=== PATIENT | female | born 1980 | race African-American/Black ===

== ENCOUNTER 2017-01-13 00:51 | Emergency (ER) | payer OTHER ==
[~2017-01-13] VITALS: Ht 172.7 cm; Wt 125.0 kg
[~2017-01-13 00:51] MED LIST: LISI-363 PO
[2017-01-13 00:53] VITALS: BP 169/98; PULSE 106; RESP 18; TEMP 98.9; O2SAT 98
[2017-01-13] MEDS ORDERED: LISI-515 PO (01:39)
--- NOTE | 2017-01-13 01:47 | PD ---
HPI Chief Complaint: Oral / Dental Pain or Problem Time Seen by Provider: 01:44 Travel History International Travel<30 days: No Contact w/Intl Traveler<30days: No Traveled to known affect area: No History of Present Illness HPI Patient comes in complaining of left upper and lower dental pain that began yesterday. Patient states she's had problems with her teeth for approximately 4 years but has not been seen by a dentist secondary to cost. Patient is using [id number] medication with no relief symptoms. Patient reports pain is radiating into her ear is worse when anything touches it. Denies any fevers, nausea, vomiting, or difficulty swallowing. PFSH Past Medical History Blood Disorders: No Anxiety: Yes Depression: Yes Heart Rhythm Problems: No Cardiac Catheterization: No Cardiovascular Problems: Yes (HTN) Cerebrovascular Accident: No Diminished Hearing: No Endocrine: No Gastrointestinal Disorders: Yes GERD: No Genitourinary: No Headaches: No Hepatitis: No Hiatal Hernia: No Hypertension: Yes Immune Disorder: No Musculoskeletal: No Neurologic: No Psychiatric: Yes Reproductive: No Respiratory: No Immunizations Current: Yes Migraines: No Seizures: No PNEUMOCCOCAL Vaccine (Year): 2 ?: Not LMP: 01/02/17 Menopausal: No : 11 Para: 5 Miscarriage: 2 : 1 Dilation and Curettage (D&C): Yes Past Surgical History Abdominal Surgery: No Appendectomy: Yes Cardiac Surgery: No Section: Yes (X 4) Cholecystectomy: No Coronary Artery Bypass Graft: No Ear Surgery: No Endocrine Surgery: No Eye Surgery: No Genitourinary Surgery: No Gynecologic Surgery: Yes (, d&c) Oral Surgery: No Thoracic Surgery: No Social History Alcohol Use: Yes (occ) Tobacco Use: Yes Substance Use: No (quit marijuana) Allergies-Medications (Allergen,Severity, Reaction): Coded Allergies: Hydrocodone (Verified Allergy, Severe, Shortness of Breath, 01/13/17) Acyclovir (Verified Allergy, Unknown, Edema, 01/13/17) *MDRO Multi-Drug Resistant Organism (Verified Adverse Reaction, Unknown, ) 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 SKIN: Warm and dry. HEAD: Atraumatic. Normocephalic. EYES: Pupils equal and round. EOMI. No scleral icterus. No injection or drainage. ENT: No nasal bleeding or discharge. Mucous membranes pink and moist. Tympanic membranes pearly hassan bilaterally. Posterior pharynx erythematous with exudate. Uvula is midline. There is poor dentition with no visible or palpable abscess. Floor the mouth, submandibular, submental are all soft to palpation. NECK: Trachea midline. No cervical lymphadenopathy. Supple. No nuclear rigidity. RESPIRATORY: No accessory muscle use. No respiratory distress. MUSCULOSKELETAL: No obvious deformities. No clubbing. No cyanosis. No edema. Full range of motion. NEUROLOGICAL: Awake and alert. No obvious cranial nerve deficits. Motor grossly within normal limits. Normal speech. PSYCHIATRIC: Appropriate mood and affect; insight and judgment normal. Data Data Last Documented VS Vital Signs Date Time Temp Pulse Resp B/P Pulse Ox O2 Delivery O2 Flow Rate FiO2 01/13/17 01:58 92 16 166/88 99 01/13/17 00:53 98.9 Orders Clindamycin (Cleocin) (01/13/17 02:00) [facility] Medical Decision Making Medical Screen Exam Complete: Yes Emergency Medical Condition: Yes Differential Diagnosis Dental abscess, dental infection, dentalgia, other Narrative Course The patient presented with dental pain. There is no fever. There is no significant facial swelling or evidence of cellulitis. There is poor dentition but no evidence of drainable abscess at this time. There is no evidence of significant deep or invading abscess at this time. The patient will be placed on antibiotics and pain medication. The patient was instructed to follow up with a dentist. The patient was given the dental referral sheet. Warnings were discussed with the patient regarding worsening of infection. The patient is to return if pain worsens, develops progressive swelling or facial redness or fever. The patient agrees with plan. Patient in no obvious distress upon re-evaluation. Patient was asked if they wanted to speak to my attending, which the patient did not wish to do at this time. Any questions/concerns in reference to patient diagnosis/condition discussed and clarified prior to patient's discharge. Reinforced sheer importance of close follow up with patient's primary physician or primary care clinic. Instructed patient to return to ED immediately, if symptoms return/ worsen. Pt showed understanding of above instructions. Further instructions and recommendations were detailed in discharge paperwork. Pt ambulated without difficulty out of ED at discharge. Diagnosis Primary Impression: Dentalgia Patient Instructions: Dental Abscess (ED), Dental Caries (DC), General Instructions Additional Instructions: Follow-up with your primary care physician and dentist as soon as possible. Rinse mouth with warm salt water gargles. Take all medication as prescribed. Return to the emergency department if symptoms get worse. Med/Other Pt SpecificInfo: Prescription(s) given Scripts Diclofenac Sodium DR 75 Mg Tabdr75 Mg PO BID PRN (PAIN SCALE 1 TO 10) #12 TAB Ref 0 Prov:Kenneth Lyman MD 01/13/17 Clindamycin 150 Mg Cap2 Tab PO Q6H 10 Days Ref 0 Prov:Kenneth Lyman MD 01/13/17 Disposition: DISCHARGE HOME Condition: Stable Anand Issa Jan 13, 2017 01:47
[2017-01-13] MEDS ORDERED: CLIN1CAP5 PO (01:48)
[2017-01-13] MEDS ORDERED: DICL75TA PO (01:48)
[2017-01-13 01:58] VITALS: BP 166/88
[2017-01-13] MEDS ORDERED: CLINDAMYCIN 150 MG CAP PO ONE (02:00)
== END 2017-01-13 02:07 | disposition home or self-care (01) ==
LOC: NEPB 00:51
DX: K08.89 Other specified disorders of teeth and supporting structures (principal); I10 Essential (primary) hypertension; Z72.0 Tobacco use; Z87.19 Personal history of other diseases of the digestive system; Z86.59 Personal history of other mental and behavioral disorders
CPT/HCPCS: 99282

== ENCOUNTER 2017-10-31 17:35 | Emergency (ER) | payer SELFPAY ==
[~2017-10-31] VITALS: Ht 172.7 cm; Wt 116.4 kg
[~2017-10-31 17:35] MED LIST changes: +CLIN150C14 PO; +DICL75TA PO; -LISI-363 PO; +LISI-515 PO
[2017-10-31 17:41] VITALS: BP 242/153; PULSE 83; RESP 18; TEMP 98.7; O2SAT 98
[2017-10-31] MEDS ORDERED: SILVER SULFADIAZINE 1% CR 50 GM JAR TOPICAL ONE (18:00)
[2017-10-31] MEDS ORDERED: KETOROLAC TROMETHAMINE 60 MG/2 ML (IM) VIAL IM ONE (18:00)
[2017-10-31] MEDS ORDERED: TETANUS/DIPHTHERIA TOXOID ADULT 0.5 ML VIAL IM ONE (18:00)
[2017-10-31] MEDS ORDERED: MOBI15TA PO (18:01)
[2017-10-31] MEDS ORDERED: NORC5TAB PO (18:01)
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
[2017-10-31] MEDS ORDERED: SILV1CRE20 TOPICAL (18:04)
[2017-10-31] MEDS ORDERED: LABE100T2 PO (18:30)
[2017-10-31 18:58] VITALS: BP 218/125
[2017-10-31 19:09] VITALS: RESP 20
== END 2017-10-31 19:11 | disposition home or self-care (01) ==
LOC: PHED 17:35
DX: T23.202A Burn of second degree of left hand, unspecified site, initial encounter (principal); T23.152A Burn of first degree of left palm, initial encounter; I10 Essential (primary) hypertension; X15.8XXA Contact with other hot household appliances, initial encounter; Z72.0 Tobacco use; Z23 Encounter for immunization
CPT/HCPCS: 16020; 90471; 90714; 96374; 99284; J1885

== ENCOUNTER 2017-11-01 16:18 | Emergency (ER) | payer SELFPAY ==
[~2017-11-01] VITALS: Ht 172.7 cm; Wt 118.8 kg
[~2017-11-01 16:18] MED LIST changes: -CLIN150C14 PO; -DICL75TA PO; +LABE100T2 PO; +MOBI15TA PO; +NORC5TAB PO; +SILV1CRE20 TOPICAL
[2017-11-01 16:46] VITALS: BP 178/98; PULSE 77; RESP 16; TEMP 99.1; O2SAT 100
[2017-11-01] MEDS ORDERED: SILVER SULFADIAZINE 1% CR 50 GM JAR TOPICAL ONE (17:00)
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
== END 2017-11-01 17:16 | disposition home or self-care (01) ==
LOC: PHED 16:18 → PHEFT 17:16
DX: T23.202D Burn of second degree of left hand, unspecified site, subsequent encounter (principal); X15.8XXD Contact with other hot household appliances, subsequent encounter
CPT/HCPCS: 99281

== ENCOUNTER 2018-01-10 16:55 | Emergency (ER) | payer OTHER ==
[~2018-01-10] VITALS: Ht 172.7 cm; Wt 117.3 kg
[2018-01-10] MEDS ORDERED: LOSA50TA PO ×2 (17:21→18:17)
[2018-01-10] MEDS ORDERED: HYDR25TA5 PO ×2 (17:21→18:17)
[2018-01-10 17:22] VITALS: BP 148/87; PULSE 88; RESP 16; TEMP 98.7; O2SAT 97
[2018-01-10] MEDS ORDERED: TYLETAB34 PO (17:35)
--- NOTE | 2018-01-10 17:37 | PD ---
HPI Chief Complaint: Chest Pain Time Seen by Provider: 17:10 Travel History International Travel<30 days: No Contact w/Intl Traveler<30days: No Traveled to known affect area: No History of Present Illness HPI The patient was seen and examined in the presence of the nurse. This patient complains of chest pain. It's located in the left pectoral region. She's had this pain on and off for several years now. She was seen here in 2016 for it 3 different times. No injury. Denies breath or cough or fever. Pain is nonexertional. It's worse with movement of her left shoulder PFSH Past Medical History Blood Disorders: No Anxiety: Yes Depression: Yes Heart Rhythm Problems: No Cardiac Catheterization: No Cardiovascular Problems: Yes (HTN) Cerebrovascular Accident: No Diminished Hearing: No Endocrine: No Gastrointestinal Disorders: Yes GERD: No Genitourinary: No Headaches: No Hepatitis: No Hiatal Hernia: No Hypertension: Yes Immune Disorder: No Musculoskeletal: No Neurologic: No Psychiatric: Yes Reproductive: No Respiratory: No Immunizations Current: Yes Migraines: No Seizures: No PNEUMOCCOCAL Vaccine (Year): 2 ?: Not Menopausal: No : 11 Para: 5 Miscarriage: 2 : 1 Dilation and Curettage (D&C): Yes Past Surgical History Abdominal Surgery: No Appendectomy: Yes Cardiac Surgery: No Section: Yes (X 4) Cholecystectomy: No Coronary Artery Bypass Graft: No Ear Surgery: No Endocrine Surgery: No Eye Surgery: No Genitourinary Surgery: No Gynecologic Surgery: Yes (, d&c) Oral Surgery: No Thoracic Surgery: No Other Surgery: Yes (SEE ABOVE) Social History Alcohol Use: Yes (occ) Tobacco Use: Yes (2 CIG DAILY) Substance Use: No (quit marijuana) Allergies-Medications (Allergen,Severity, Reaction): Coded Allergies: hydrocodone (Unverified Allergy, Severe, Shortness of Breath, 11/01/17) acyclovir (Unverified Allergy, Unknown, Edema, 11/01/17) *MDRO Multi-Drug Resistant Organism (Verified Adverse Reaction, Unknown, 11/01/17) MRSA 2009 Arm wound Reported Meds & Prescriptions Reported Meds & Active Scripts Active Tylenol-Codeine #3 (Acetaminophen-Codeine) 300-30 mg Tab 1 Tab PO Q4H PRN Reported Losartan (Losartan Potassium) 50 Mg Tab 50 Mg PO BID Hydrochlorothiazide 25 Mg Tab 25 Mg PO DAILY Labetalol (Labetalol HCl) 100 Mg Tab 100 Mg PO BID Review of Systems General / Constitutional: No: Fever HENT: No: Headaches Cardiovascular: Positive: Chest Pain or Discomfort Respiratory: No: Cough Gastrointestinal: No: Vomiting Genitourinary: No: Frequency Physical Exam Narrative RESPIRATORY: Respiratory effort unlabored, no retractions or use of accessory muscles. Breath sounds are clear and symmetric. CARDIOVASCULAR: Regular rate and rhythm without murmur. Extremities showed no edema or varicosities. GASTROINTESTINAL: Abdomen soft, non-tender, nondistended. Positive bowel sounds. No hepato-splenomegaly, or palpable masses. No guarding. Chest wall: Readily reproducible chest wall tenderness in the left pectoral region Data Data Last Documented VS Vital Signs Date Time Temp Pulse Resp B/P (MAP) Pulse Ox O2 Delivery O2 Flow Rate FiO2 01/10/18 17:22 98.7 88 16 148/87 (107) 97 MDM Medical Decision Making Medical Screen Exam Complete: Yes Emergency Medical Condition: Yes Medical Record Reviewed: Yes Differential Diagnosis Chest wall pain, RI, costochondritis Narrative Course I have reviewed the patient's electronic medical record. I reviewed her EKG which is normal This patient has clear-cut readily reproducible chest wall pain and will not require inpatient evaluation I wrote her a dozen Tylenol 3 Diagnosis Primary Impression: Musculoskeletal chest pain Additional Instructions: The patient was advised to follow up with their physician and return if they worsen. The patient was warned about potential sedation for the medications they will receive on prescription. Med/Other Pt SpecificInfo: Prescription(s) given Scripts Acetaminophen-Codeine (Tylenol-Codeine #3) 300-30 mg Tab 1 TAB PO Q4H Y for PAIN, #12 TAB 0 Refills Prov: Isaac Liao MD 01/10/18 Disposition: 01 DISCHARGE HOME Condition: Stable Isaac Liao MD Jan 10, 2018 17:37
[2018-01-10] MEDS ORDERED: LABE100T2 PO (18:17)
--- NOTE | 2018-01-11 15:30 | EKG ---
Date Performed: 01/10/2018 Time Performed: 17:05:18 PTAGE: 37 years EKG: Sinus rhythm NONSPECIFIC T-WAVE ABNORMALITY Since previous tracing, no significant change noted BORDERLINE ECG PREVIOUS TRACING : 08/13/2016 00.70.40 DOCTOR: Carlton Medina Interpretating Date/Time 01/11/2018 15:30:16
== END 2018-01-10 18:26 | disposition home or self-care (01) ==
LOC: PHED 16:55
DX: R07.89 Other chest pain (principal); I10 Essential (primary) hypertension; Z72.0 Tobacco use
CPT/HCPCS: 93005; 99283